=== PATIENT | male | born 1965 | race Caucasian/White ===

== ENCOUNTER 2022-01-30 13:35 | Outpatient (NON) | payer BC, SELFPAY | END 2022-01-30 13:36 | disposition home or self-care (01) | PROVIDERS: PCP Internal Medicine; Visit Provider Surgery Plastic and Reconstructive Surgery | DX: B07.0 Plantar wart (principal) | CPT/HCPCS: 88305 ==

== ENCOUNTER 2022-09-15 11:04 | Emergency (ER) | payer BC, SELFPAY ==
--- NOTE | 2022-09-15 11:06 | ED.ANIMALBIT ---
HPI - Animal Bite General Chief Complaint: Animal Bite Stated Complaint: BITE Time Seen by Provider: 09/15/22 11:05 Source: patient Mode of arrival: ambulatory Limitations: no limitations History of Present Illness HPI narrative: Mr. Hammer is a 56-year-old male patient presenting to clinic today with complaints of a dog bite to his left hand. He reports he was playing ball with his dog and he acted as though he was going after the ball (attempting to get the ball out of the dogs mouth) and the dog bit him. He has a laceration to the webbing in between the thumb and index finger on the left hand. Bleeding is controlled. Related Data Home Medications Medication Instructions Recorded Confirmed multivitamin 1 tablet PO DAILY 02/14/19 09/15/22 mecobalamin (vitamin B12) 1 tab-cap PO DAILY 12/31/20 09/15/22 elderberry fruit 200 mg capsule 200 mg PO DIRECTED 08/01/22 09/15/22 Allergies Allergy/AdvReac Type Severity Reaction Status Date / Time Sulfa (Sulfonamide Allergy Unknown Nausea and Verified 08/01/22 06:57 Antibiotics) Vomiting Review of Systems Review of Systems: Pertinent positives per HPI. Patient denies any fever, chills, rash, headache, visual changes, dizziness, cough, runny nose, sore throat, shortness of breath, chest pain, palpitations, nausea, vomiting, diarrhea, constipation, abdominal pain, or any urinary issues. [facility] Family History Family History Sibling Diabetes mellitus Family history of colonic diverticulitis Mother Family history of thyroid disease Father Hypertension Family history of colonic diverticulitis Family history of atrial fibrillation Social History Social History Smoking status: Unknown if ever smoked Tobacco type: cigars Second hand tobacco smoke exposure: Yes Additional smoking assessment comments: 1 cigar every 6-8 months Alcohol intake: current Alcohol use details: 2 beers monthly Substance use: never Substance use type: does not use Lack of Transportation: No Lack of Food: Never True Current Housing: I Have Housing Concerned About Future Housing: No Difficulty Paying Gas/Electric Bills: No Difficulty Paying for Meds: No Currently Unemployed: No Education: Master's Degree or Higher Difficulty w/ Childcare or Family Care: No Living arrangements: with family Occupation/Education: occupation Gender identity (if verbalized by the patient): Male Sexual Orientation (if Verbalized by the Patient): Straight or Heterosexual Comments At the time of my signature, I reviewed and agree with the nursing past medical, surgical, social, and family history. There is no relevant family history pertinent to the patient complaint. Exam Narrative: General: Well-developed, well nourished, in no apparent distress Head: Normocephalic, atraumatic. Cardio: Regular rate and rhythm, s1 and s2 normal, no murmur appreciated. Resp: Clear to auscultation bilaterally, no rhonchi, rales, wheezing or rubs. Integumentary: [place], warm, and dry, 2 cm laceration to the webbing in between the left index finger and thumb, gaping with skin flap Course Course Emergency Course: Portions of this record may have been created with voice recognition software. Level of Care: Express Care Visit Vital Signs Vital signs: Vital signs reviewed Procedures Laceration Laceration 1: Date: 09/15/22 Site: hand Side (If applicable): left Size (cm): 2 Description: linear and flap Depth: simple, single layer Local Anesthetic: lidocaine 1% Amount of anesthesia used (mL): 3 Pre-repair: wound explored, irrigated extensively and minor debridement (Small skin flap was removed) ====== Skin Level ====== Skin layer closed with: nylon Size (cm): 4-0 Number of sutures:
[2022-09-15 11:21] VITALS: BP 101/57; PULSE 74; RESP 16; TEMP 36.3; O2SAT 97
== END 2022-09-15 11:56 | disposition home or self-care (01) ==
PROVIDERS: Emergency Provider Nurse Practitioner Family
DX: S61.412A Laceration without foreign body of left hand, initial encounter (principal); W54.0XXA Bitten by dog, initial encounter; Z72.0 Tobacco use; E78.00 Pure hypercholesterolemia, unspecified; I10 Essential (primary) hypertension; R73.03 Prediabetes
CPT/HCPCS: 12001; 99213; G0463

== ENCOUNTER 2023-01-02 12:24 | Outpatient (NON) | payer BC, SELFPAY | END 2023-01-02 12:25 | disposition home or self-care (01) | LOC: ANHLAB 01-03 12:26 | PROVIDERS: PCP Family Medicine; Visit Provider Nurse Practitioner | DX: C44.319 Basal cell carcinoma of skin of other parts of face (principal) | CPT/HCPCS: 88305 ==

== ENCOUNTER 2023-01-04 06:04 | Emergency (ER) | payer BC, SELFPAY ==
[2023-01-04 06:07] VITALS: BP 158/98; PULSE 73; RESP 18; TEMP 36.8; O2SAT 96
--- NOTE | 2023-01-04 07:19 | ED.WOUNDLAC ---
HPI - Wound/Laceration General Chief Complaint: Wound/Laceration Stated Complaint: laceration Time Seen by Provider: 01/04/23 07:03 History of Present Illness HPI narrative: Patient is a 57-year-old male who presents ER with a bleeding wound. He had a punch biopsy at Dr. Cadet office 2 days ago. A dissolvable suture was put in by the nurse practitioner. He washed his hair today while taking a bath and immediately started bleeding. A compressive dressing has been applied no additional bleeding. He is on no blood thinning agents or blood thinners. No pain. Related Data Home Medications Medication Instructions Recorded Confirmed multivitamin 1 tablet PO DAILY 02/14/19 09/21/22 mecobalamin (vitamin B12) 1 tab-cap PO DAILY 12/31/20 09/21/22 elderberry fruit 200 mg capsule 200 mg PO DIRECTED 08/01/22 09/21/22 zinc gluconate 30 mg tablet 30 mg PO DAILY 09/20/22 09/21/22 Allergies Allergy/AdvReac Type Severity Reaction Status Date / Time Sulfa (Sulfonamide Allergy Unknown Nausea and Verified 09/21/22 07:58 Antibiotics) Vomiting Review of Systems Constitutional: Constitutional: Reports no additional constitutional complaints Integumentary/Breasts: Skin/Breast: Denies erythema and Denies rash Comments: bleeding wound PMFSH Past Medical History Medical History (Updated 01/04/23 @ 08:16 by Nicola Desai MD) Essential hypertension GERD (gastroesophageal reflux disease) Hyperlipidemia Family History Family History Sibling Diabetes mellitus Family history of colonic diverticulitis Mother Family history of thyroid disease Father Hypertension Family history of colonic diverticulitis Family history of atrial fibrillation Social History Social History Smoking status: Unknown if ever smoked Tobacco type: cigars Second hand tobacco smoke exposure: Yes Additional smoking assessment comments: 1 cigar every 6-8 months Alcohol intake: current Alcohol use details: 2 beers monthly Substance use: never Substance use type: does not use Lack of Transportation: No Lack of Food: Never True Current Housing: I Have Housing Concerned About Future Housing: No Difficulty Paying Gas/Electric Bills: No Difficulty Paying for Meds: No Currently Unemployed: No Education: Master's Degree or Higher Difficulty w/ Childcare or Family Care: No Living arrangements: with family Occupation/Education: occupation Gender identity (if verbalized by the patient): Male Sexual Orientation (if Verbalized by the Patient): Straight or Heterosexual Exam Narrative: GENERAL: Well-appearing, well-nourished, and in no acute distress. HEAD: Normocephalic, atraumatic. SKIN: Warm, dry. 3 mm punch biopsy wound left moravian anterior to the hairline without any active bleeding or evidence of infection. NEURO: Alert and oriented x3. PSYCH: Normal mood and affect. Course Course Emergency Course: Discussed case with [facility] plastic surgery. Gemma who performed biopsy will began at 9a. Patient should come by the office and that we will determine if any additional procedures are necessary. Vital Signs Vital signs: Vital Signs Temperature 98.2 F 01/04/23 06:07 Pulse Rate 73 01/04/23 06:07 Respiratory Rate 18 01/04/23 06:07 Blood Pressure 158/98 H 01/04/23 06:07 Pulse Oximetry 96 01/04/23 06:07 Oxygen Delivery Room Air 01/04/23 06:07 Temperature 98.2 F 01/04/23 06:07 Pulse Rate 73 01/04/23 06:07 Respiratory Rate 18 01/04/23 06:07 Blood Pressure 158/98 H 01/04/23 06:07 Pulse Oximetry 96 01/04/23 06:07 Oxygen Delivery Room Air 01/04/23 06:07 Discharge Plan Discharge Clinical Impression: Dehiscence of wound Patient Disposition: Home, Self-Care Condition: Stable Instructions: Wound Dehiscence (ED) Addition
[2023-01-04 08:22] VITALS: PULSE 77; O2SAT 97
== END 2023-01-04 08:23 | disposition home or self-care (01) ==
PROVIDERS: Emergency Provider Emergency Medicine; PCP Family Medicine
DX: T81.31XA Disruption of external operation (surgical) wound, not elsewhere classified, initial encounter (principal); I10 Essential (primary) hypertension; E78.5 Hyperlipidemia, unspecified; K21.9 Gastro-esophageal reflux disease without esophagitis; Y84.8 Other medical procedures as the cause of abnormal reaction of the patient, or of later complication, without mention of misadventure at the time of the procedure
CPT/HCPCS: 99281

== ENCOUNTER 2023-02-05 15:06 | Outpatient (NON) | payer BC, SELFPAY | END 2023-02-05 15:07 | disposition home or self-care (01) | PROVIDERS: PCP Family Medicine; Visit Provider Nurse Practitioner | DX: C44.319 Basal cell carcinoma of skin of other parts of face (principal) | CPT/HCPCS: 88305; 88331 ==

== ENCOUNTER 2023-02-13 12:42 | Outpatient (CLI) | payer BC, SELFPAY ==
--- NOTE | ~2023-02-13 | US_ITS ---
EXAMINATION: US thyroid DATE: 02/13/2023 14:21 INDICATION: Nontoxic multinodular goiter. TECHNIQUE: Multiple ultrasound images of the thyroid were obtained. COMPARISON: Ultrasound 09/25/2017 FINDINGS: The right thyroid lobe measures 4.7 x 2.4 x 1.5 cm. The left thyroid lobe measures 4.6 x 1.7 x 1.8 c m. The thyroid demonstrates heterogeneous echogenicity. Vascularity is increased. No discrete nodule . IMPRESSION: 1. Heterogeneous, hypervascular thyroid, consistent with chronic lymphocytic (Annita) thyroiditis. Reviewed, dictated and finalized at location E. [employer] IMPRESSION: 1. Heterogeneous, hypervascular thyroid, consistent with chronic lymphocytic (H ashimoto) thyroiditis.
== END 2023-02-13 12:43 | disposition home or self-care (01) ==
PROVIDERS: PCP Family Medicine; Visit Provider Nurse Practitioner
DX: E04.2 Nontoxic multinodular goiter (principal)
CPT/HCPCS: 76536